=== PATIENT | female | born 1965 | race Hispanic/Latino ===

== ENCOUNTER → 2019-05-10 | Outpatient (CLI) | payer BC ==
[~2019-05-10] MED LIST: LEFL20TA PO; LORA10TA7 PO; MOME17N NASAL; PANT40TA25 PO; PRED10TA23 PO; PSEU60 PO; RAMI5CAP66 PO; SERT50TA PO; SIMV-43 PO; SUCR1TAB28 PO
== END | disposition home or self-care (01) ==
LOC: OIH 16:21
PROVIDERS: ATTEND Internal Medicine
DX: M47.814 Spondylosis without myelopathy or radiculopathy, thoracic region (principal); J18.9 Pneumonia, unspecified organism; R09.1 Pleurisy
CPT/HCPCS: 71046

== ENCOUNTER → 2023-03-18 | Outpatient (CLI) | payer OTHER ==
[~2023-03-18] MED LIST changes: -PANT40TA25 PO; +PANT40TA54 PO; +PSEU-221 PO; -PSEU60 PO
== END | disposition home or self-care (01) ==
LOC: OIH 10:17
PROVIDERS: ATTEND Internal Medicine
DX: J18.9 Pneumonia, unspecified organism (principal); M47.815 Spondylosis without myelopathy or radiculopathy, thoracolumbar region
CPT/HCPCS: 71046

== ENCOUNTER → 2023-04-16 | Outpatient (CLI) | payer OTHER | END | disposition home or self-care (01) | LOC: RAH 07:48 | PROVIDERS: ATTEND Internal Medicine | DX: R60.0 Localized edema (principal); I82.409 Acute embolism and thrombosis of unspecified deep veins of unspecified lower extremity | CPT/HCPCS: 93970 ==

== ENCOUNTER → 2023-05-19 | Outpatient (CLI) | payer OTHER | END | disposition home or self-care (01) | LOC: OIH 10:09 | PROVIDERS: ATTEND Internal Medicine | DX: S86.112A Strain of other muscle(s) and tendon(s) of posterior muscle group at lower leg level, left leg, initial encounter (principal); X58.XXXA Exposure to other specified factors, initial encounter; Y93.89 Activity, other specified; Y92.89 Other specified places as the place of occurrence of the external cause; Y99.8 Other external cause status | CPT/HCPCS: 73590 ==